=== PATIENT | male | born 2000 | race African-American/Black ===

== ENCOUNTER → 2023-02-08 13:51 | Outpatient (CLI) | payer OTHER, SELFPAY ==
--- NOTE | 2023-02-08 | DI.MRI.S_ITS ---
PROCEDURE: MR KNEE LT WO CON INDICATIONS: Pain in left knee TECHNIQUE: Noncontrast sagittal PD fast spin echo and T2 fast spin echo with fat saturation, sagittal 3-D FLASH with fat saturation; coronal T1 spin echo and PD fast spin echo with fat saturation, and axial PD fast spin echo with fat saturation through the knee. COMPARISON: None. FINDINGS: Image quality: Good, but degraded by metallic artifact Menisci: Medial: Complex tear of the body and posterior horn of the medial meniscus, possibly previously repaired. No priors are available at this time. Lateral: Intact. Meniscopopliteal fascicles maintained. Cruciate ligaments: ACL graft. There is metallic artifact limiting evaluation. High T2 signal is seen in the middle of the graft. The PCL is intact. Medial structures: MCL: Mild periligamentous edema Pes anserine tendons: Intact Semimembranosus: Intact Lateral structures: LCL: Intact Biceps femoris: Intact IT band: Intact Popliteus tendon: Intact Anterior structures: Extensor mechanism: Prior patellar tendon harvesting site. There is edema in the inferior patella at the patellar tendon origin. Fat pads: No pathologic edema Medial retinaculum: Intact. Trochlea: Unremarkable morphology. Bone and joint: Bones: There is some edema at the inferior patella. Cartilage: No full-thickness defect Joint space: [id number] joint effusion. There is evidence of synovitis/small debris. Horner's cyst: None Soft tissues: No significant vascular or other soft tissue pathology. IMPRESSION: ACL graft, with high T2 signal in the mid substance. There is metallic artifact in the mid region limiting evaluation. This could represent a high-grade sprain/tear versus continued postsurgical edema. The proximal and distal fibers are at least partially intact (7/17). Complex medial meniscal tear versus prior repair. Joint effusion and evidence of synovitis/debris. Edema at the inferior patella and patellar tendon harvesting site, postoperative in etiology versus recent injury. Suspected MCL sprain. Clinical correlation is required. Dictated by: Alexandro Padilla M.D. on 02/08/2023 at 16:53 Approved by: Alexandro Padilla M.D. on 02/08/2023 at 17:04
== END ==
DX: M25.562 Pain in left knee (principal); M25.462 Effusion, left knee
CPT/HCPCS: 73721